=== PATIENT | female | born 1930 | race Caucasian/White ===

== ENCOUNTER 2016-11-10 02:50 | Emergency (ER) | payer OTHER ==
[~2016-11-10 02:50] MED LIST: ADVIL200 M1 PO; ASPIRIN PO; CALTRATE 600+D PO; CALTRATE PLUS T1 TAB PO; CALTRATE-600/VI1 TA1 PO; CALTRATE-600/VI1 TA2 PO; CLARITIN10 M2 PO; CLARITIN10 M3 PO; CLARITIN10 MG PO; COREG6.25 MG PO; EVISTA60 M1 PO; EVISTA60 MG PO; LEVAQUIN250 MG PO; LIPITOR PO; LIPITOR20 MG PO; LISINOPRIL10 MG PO; LORTAB 7.5-5001 TAB PO; NEXIUM PO; OMEGA PO; OYSTER CALCIUM500 MG PO; PRINIVIL10 MG PO; SINGULAIR PO
[2016-11-10 05:46] LABS: BASOPHIL% 0.1 % (0-2.5); EOSINOPHIL# 0.2 X10e3 (0-0.7); EOSINOPHIL% 1.5 % (0.0-7.0); HEMATOCRIT 42.7 % (35.0-45.0); HEMOGLOBIN 13.7 gm/dL (12.0-16.0); LYMPHOCYTE# 2.3 X10e3 (1.0-3.5); LYMPHOCYTE% 20.1 % (17.0-45.0); MEAN CELL VOLUME 90.2 FL (83-96); MEAN CORPUSCULAR HGB CONC 32.2 g/dL (30-36); MEAN PLATELET VOLUME 10.8 FL (6.5-11.5); MONOCYTE# 0.8 X10e3 (0-1.0); MONOCYTE% 7.1 % (3.0-12.0); NEUTROPHIL# 7.9 X10e3 (1.5-7.1); NEUTROPHIL% 71.2 % (40-75); PLATELET COUNT 225 X10e3 (140-420); RED BLOOD COUNT 4.73 X10e (3.90-5.30); RED CELL DISTRIBUTION WIDTH 12.9 % (11.0-15.5); WHITE BLOOD COUNT 11.2 X10e3 (4.0-10.5)
[2016-11-10 05:50] LABS: DIFF IND NO
[2016-11-10 06:23] LABS: ALBUMIN SERUM 4.2 g/dL (3.5-5.0); BILIRUBIN, DIRECT 0.1 mg/dL (0.0-0.2); BILIRUBIN,INDIRECT 0.4 mg/dL (0.0-0.9); BILIRUBIN,TOTAL 0.5 mg/dL (0.2-2.0); CALCIUM SERUM 9.3 mg/dL (8.4-10.2); CREATININE SERUM 0.5 mg/dL (0.6-1.4); GLOM FILT RATE Estimated 87.6 mL/min (>60); POTASSIUM 4.3 mmol/L (3.5-5.1); PROTEIN TOTAL SERUM 7.1 g/dL (6.0-8.3)
== END 2016-11-10 07:06 | disposition home or self-care (01) ==
LOC: CED 02:50
DX: R19.7 Diarrhea, unspecified (principal); K57.92 Diverticulitis of intestine, part unspecified, without perforation or abscess without bleeding; Z90.710 Acquired absence of both cervix and uterus; Z98.890 Other specified postprocedural states; Z87.891 Personal history of nicotine dependence; Z88.5 Allergy status to narcotic agent; Z79.82 Long term (current) use of aspirin; Z79.899 Other long term (current) drug therapy
CPT/HCPCS: 36415; 80048; 80076; 83690; 85025; 96360; 99284